=== PATIENT | male | born 1975 | race Caucasian/White ===

== ENCOUNTER → 2021-03-24 | Outpatient (CLI) | payer OTHER ==
[~2021-03-24] MED LIST: AMOXICILLIN500 MG PO
== END | disposition home or self-care (01) ==
LOC: COVID19 18:31
PROVIDERS: ATTEND Podiatrist Foot & Ankle Surgery
DX: Z11.52 Encounter for screening for COVID-19 (principal)

== ENCOUNTER 2021-06-12 10:04 | Emergency (ER) | payer OTHER ==
[~2021-06-12] VITALS: Wt 158.8 kg
== END 2021-06-12 10:49 | disposition home or self-care (01) ==
LOC: ED 10:04
DX: U07.1 COVID-19 (principal); B34.9 Viral infection, unspecified; Z88.8 Allergy status to other drugs, medicaments and biological substances

== ENCOUNTER 2023-10-14 15:38 | Emergency (ER) | payer BC ==
[~2023-10-14] VITALS: Ht 175.2 cm; Wt 149.7 kg
[2023-10-14] MEDS ORDERED: methylPREDNISolone sod succ 125 MG VIAL IV ONE (16:20)
[2023-10-14] MEDS ORDERED: FAMOTIDINE 50 ML IV ONE (16:20)
[2023-10-14] MEDS ORDERED: SODIUM CHLORIDE 0.9% 1,000 ML IV ONE (16:20)
[2023-10-14] MEDS ORDERED: Ondansetron Hydrochloride 4 MG/2 ML VIAL IV ONE (16:20)
[2023-10-14] MEDS ORDERED: MG-AL HYDROXIDE/SIMETICONE 30 ML UDC PO STA (17:28)
[2023-10-14] MEDS ORDERED: Dicyclomine Hydrochloride 20 MG/10 ML OSYR PO STA (17:28)
[2023-10-14] MEDS ORDERED: Lidocaine Hydrochloride 15 ML UDC PO STA (17:28)
[2023-10-14] MEDS ORDERED: PREDNISONE20 M1 PO (18:04)
== END 2023-10-14 18:02 | disposition home or self-care (01) ==
LOC: ED 15:38
DX: K21.9 Gastro-esophageal reflux disease without esophagitis (principal); T78.1XXA Other adverse food reactions, not elsewhere classified, initial encounter; J45.909 Unspecified asthma, uncomplicated; R21 Rash and other nonspecific skin eruption; Z88.8 Allergy status to other drugs, medicaments and biological substances; X58.XXXA Exposure to other specified factors, initial encounter

== ENCOUNTER 2025-03-10 07:38 | Emergency (ER) | payer BC ==
[~2025-03-10] VITALS: Ht 182.8 cm; Wt 155.6 kg
[~2025-03-10 07:38] MED LIST changes: +PREDNISONE20 M1 PO
[2025-03-10] MEDS ORDERED: SODIUM CHLORIDE 0.9% 1,000 ML IV ONE (07:55)
[2025-03-10] MEDS ORDERED: TRULICITY1.5 MG/0.5 SC (07:55)
[2025-03-10 08:09] LABS: BASO # 0.1 10*3/uL (0.0-0.1); BASO % 1.0 % (0.0-1.0); EOS # 0.2 10*3/uL (0.0-0.4); EOS % 1.9 % (1.0-4.0); MEAN CELL VOLUME 85.0 fl (80.0-94.0); MEAN CORPUSCULAR HGB 29.1 pg (27.0-31.0); MEAN PLATELET VOLUME 9.9 fl (9.6-12.3); MONO # 0.9 10*3/uL (0.1-1.0); MONO % 8.3 % (3.0-9.0); NEUT # 7.6 10*3/uL (2.3-7.9); NEUT % 68.5 % (47.0-73.0); NUCLEATED RED BLOOD CELL 0.0 % (0.0-0.0); NUCLEATED RED BLOOD CELL 0.0 10*3/uL (0.0-0.0); PLATELET COUNT AUTOMATED 320 10*3/uL (130-400); RED CELL DISTRI WIDTH 13.4 % (0-14.5)
[2025-03-10 08:28] LABS: BUN 12 mg/dl (9-23)
[2025-03-10] MEDS ORDERED: ZESTORETIC 20-1 EACH PO (08:36)
[2025-03-10] MEDS ORDERED: FAMOTIDINE40 MG PO (08:36)
[2025-03-10] MEDS ORDERED: METFORMIN HYD1000 MG PO (08:37)
[2025-03-10] MEDS ORDERED: ASPIRIN 325 MG TAB PO ONE (10:10)
[2025-03-10] MEDS ORDERED: HEPARIN SODIUM 250 ML IV SCH (10:10)
[2025-03-10] MEDS ORDERED: Dextrose/Nitroglycerin 250 ML IV SCH (10:10)
== END 2025-03-10 10:36 | disposition short-term general hospital (02) ==
LOC: ED 07:38
PROVIDERS: Emergency Medicine
DX: I21.4 Non-ST elevation (NSTEMI) myocardial infarction (principal); J45.909 Unspecified asthma, uncomplicated; Z88.8 Allergy status to other drugs, medicaments and biological substances